=== PATIENT | female | born 1950 | race Caucasian/White ===

== ENCOUNTER 2019-03-24 09:44 | Emergency (ER) | payer MEDICARE, BC ==
[2019-03-24] MEDS: Sodium Chloride 0.9% 10 ML Syringe FLUSH PRN ×3 (10:25→15:40)
[2019-03-24 10:31] VITALS: BP 98/59
--- NOTE | 2019-03-24 10:43 | CR ---
[id number] RAD/RAD Chest PA And Lateral EXAM: RAD Chest PA And Lateral CLINICAL DATA: CHEST PRESSURE COMPARISON: CORRELATION IS MADE WITH THE CAT SCAN OF SEPTEMBER 18, 2015. FINDINGS: Calcified pleural plaque at the left lung base is seen. The lungs otherwise are clear. The cardiomediastinal contour is mildly prominent. IMPRESSION: NO ACUTE PROCESS. Andres Briones MD 03/24/19 1042 Thank you for allowing us to participate in the care of your patient.
--- NOTE | 2019-03-24 10:45 | EDM.PDOC ---
ED HPI GENERAL MEDICAL PROBLEM - General Chief Complaint: General Stated Complaint: CHEST PAIN;SOB Time Seen by Provider: 03/24/19 10:38 Source of Information: Reports: Patient History Limitations: Reports: No Limitations - History of Present Illness INITIAL COMMENTS - FREE TEXT/NARRATIVE: Patient is a 68-year-old female who presents to the emergency department this morning via private vehicle and has a complaint of chest pain. Patient states discomfort began on Friday, has been intermittent but worsens with movement. Chest pain is located left chest and described as pressure and achy. Patient states today because it has not resolved decided to come to emergency department for evaluation. Patient does have a history of hypertension and is currently on medication. Patient denies shortness of breath, fever, trauma, out of country travel, upper respiratory like symptoms, lower extremity edema, headache, blurry vision, or dizziness. Onset: Gradual Onset Date: 03/21/19 Duration: Day(s): Location: Reports: Chest Quality: Reports: Ache, Pressure Severity: Mild Improves with: Reports: None Worsens with: Reports: Movement Associated Symptoms: Reports: Chest Pain. Denies: Fever/Chills, Nausea/Vomiting , Shortness of Breath Middle Sternum Pain Score (Numeric/FACES): 5 - Related Data Allergies Allergy/AdvReac Type Severity Reaction Status Date / Time Sulfa (Sulfonamide Allergy Rash Verified 03/24/19 10:08 Antibiotics) Home Meds: Home Meds ALPRAZolam [Xanax] 0.25 mg PO BID PRN 10/24/15 [History] Cholecalciferol (Vitamin D3) [Vitamin D] 1,000 unit PO DAILY 10/24/15 [History] Desipramine HCl 75 mg PO DAILY 10/24/15 [History] Leflunomide 20 mg PO DAILY 10/24/15 [History] buPROPion HCl [Wellbutrin SR] 150 mg PO DAILY 10/24/15 [History] Losartan [Cozaar] 50 mg PO DAILY 03/24/19 [History] Omeprazole 20 mg PO DAILY 03/24/19 [History] Past Medical History Cardiovascular History: Reports: Hypertension STICK WELDER History: Reports: Fibroids Immunologic History: Reports: Other (See Below) - Past Surgical History HEENT Surgical History: Reports: Naso-Sinus Surgery GI Surgical History: Reports: Appendectomy, Cholecystectomy Female Surgical History: Reports: Hysterectomy Social & Family History - Tobacco Use Smoking Status *Q: Former Smoker Used Tobacco, but Quit: Yes Month/Year Tobacco Last Used: quit 12 yesrs ago Second Hand Smoke Exposure: No - Caffeine Use Caffeine Use: Reports: Coffee, Soda, Tea - Recreational Drug Use Recreational Drug Use: No - Living Situation & Occupation Living situation: Reports: Occupation: Retired ED ROS GENERAL - Review of Systems Review Of Systems: ROS reveals no pertinent complaints other than HPI. Constitutional: Reports: No Symptoms HEENT: Reports: No Symptoms Respiratory: Reports: Pleuritic Chest Pain. Denies: Wheezing, Cough Cardiovascular: Reports: Chest Pain Endocrine: Reports: No Symptoms GI/Abdominal: Reports: No Symptoms : Reports: No Symptoms Musculoskeletal: Reports: No Symptoms Skin: Reports: No Symptoms Neurological: Reports: No Symptoms Psychiatric: Reports: No Symptoms Hematologic/Lymphatic: Reports: No Symptoms Immunologic: Reports: No Symptoms ED EXAM, GENERAL - Physical Exam Exam: See Below Exam Limited By: No Limitations General Appearance: Alert, WD/WN, No Apparent Distress Eye Exam: Bilateral Eye: Normal Inspection Nose: Normal Inspection, Normal Mucosa, No Blood Throat/Mouth: Normal Inspection, Normal Oropharynx, No Airway Compromise Head: Atraumatic, Normocephalic Neck: Normal Inspection, Supple, Non-Tender Respiratory/Chest: No Respiratory Distress, Lungs Clear, Normal Breath Sounds, No Accessory Muscle Use Cardiovascular: No Murmur, Tachycardia GI/Abdominal: Normal Bowel Sounds, Soft, Non-Tender, No Organomegaly, No Distention, No Abnormal Bruit, No Mass Back Exam: Normal Inspection. No: CVA Tenderness (L), CVA Tenderness (R) Extremities: Normal Inspection, No Pedal Edema Neurological: Alert, Oriented, Normal Cognition, No Motor/Sensory Deficits Psychiatric: Normal Affect, Normal Mood Skin Exam: Warm, Dry, Intact, Normal Color, No Rash Lymphatic: No Adenopathy EKG INTERPRETATION EKG Date: 03/24/19 Time: 09:55 Rhythm: Other (Sinus tachycardia) Rate (Beats/Min): 109 [place]: Normal P-Wave: Present QRS: Normal ST-T: Other (Nonspecific T-wave) Comparison: No Change (Other than rate from 2014) Course - Vital Signs Last Recorded V/S: Last Vital Signs Temp 97.0 F 03/24/19 09:58 Pulse 108 H 03/24/19 10:31 Resp 23 H 03/24/19 10:31 BP 98/59 L 03/24/19 10:31 Pulse Ox 96 03/24/19 10:31 - Orders/Labs/Meds Orders: Active Orders 24 hr Category Date Time Status EKG Documentation Completion [RC] ASDIRECTED Care 03/24/19 10:06 Active Sodium Chloride 0.9% [Normal Saline] 100 ml Med 03/24/19 12:45 Active IV ASDIRECTED Sodium Chloride 0.9% [Saline Flush] Med 03/24/19 10:05 Active 10 ml FLUSH Q8HR PRN Saline Lock Insert [OM.PC] Routine Oth 03/24/19 10:05 Ordered Medication Orders Sodium Chloride (Normal Saline) 100 mls @ 200 mls/hr IV ASDIRECTED GREG Last Admin: 03/24/19 13:23 Dose: 200 mls/hr Sodium Chloride (Saline Flush) 10 ml FLUSH Q8HR PRN PRN Reason: keep vein open Last Admin: 03/24/19 10:25 Dose: 10 ml Labs: Laboratory Tests 03/24/19 03/24/19 03/24/19 Range/Units 09:40 09:40 09:40 WBC 20.13 H (5.00-10.00) 10^3/uL RBC 5.05 (3.80-5.50) 10^6/uL Hgb 15.1 (12.0-16.0) g/dL Hct 45.3 (37.0-47.0) % MCV 89.7 (82.0-92.0) fL MCH 29.9 (27.0-31.0) pg MCHC 33.3 (32.0-36.0) g/dL RDW 12.3 (11.5-14.5) % Plt Count 425 H (150-400) 10^3/uL MPV 8.4 (7.4-10.4) fL Immature Gran % (Auto) 0.2 (0.0-5.0) % Neut % (Auto) 82.8 H (50.0-70.0) % Lymph % (Auto) 5.5 L (20.0-40.0) % [place] % (Auto) 11.4 H (2.0-8.0) % Eos % (Auto) 0.0 L (1.0-3.0) % Baso % (Auto) 0.1 (0.0-1.0) % Immature Gran # (Auto) 0.04 (0.00-0.50) 10^3/uL Neut # (Auto) 16.67 H (2.50-7.00) 10^3/uL Lymph # (Auto) 1.10 (1.00-4.00) 10^3/uL [place] # (Auto) 2.29 H (0.10-0.80) 10^3/uL Eos # (Auto) 0.00 L (0.10-0.30) 10^3/uL Baso # (Auto) 0.03 (0.00-0.10) 10^3/uL D-Dimer, Quantitative 658 H (<400) ng/mL Sodium 134 L (136-145) mmol/L Potassium 4.3 (3.3-5.3) mmol/L Chloride 97 L (98-115) mmol/L Carbon Dioxide 26.6 (21.0-32.0) mmol/L Anion Gap 14.7 (5-15) mmol/L BUN 13 (6-25) mg/dL Creatinine 0.63 (0.51-1.17) mg/dL Est Cr Clr Drug Dosing 70.11 mL/min Estimated GFR (MDRD) > 60 mL/min Glucose 136 H (75 - 99) mg/dL Calcium 8.9 (8.7-10.3) mg/dL Total Bilirubin 0.8 (0.2-1.0) mg/dL AST 83 H (15-37) U/L ALT 92 H (12-78) U/L Alkaline Phosphatase 150 H (46-116) IU/L Troponin I 0.04 (0.00-0.070) ng/mL Total Protein 7.6 (6.4-8.2) g/dL Albumin 2.87 L (3.00-4.80) g/dL Specimen Type Urine Color (YELLOW) Urine Appearance (CLEAR) Urine pH (5.0-9.0) Ur Specific [place] (1.005-1.030) Urine Protein (NEGATIVE) mg/dL Urine Glucose (UA) (NEGATIVE) mg/dL Urine Ketones (NEGATIVE) mg/dL Urine Occult Blood (NEGATIVE) Urine Nitrite (NEGATIVE) Urine Bilirubin (NEGATIVE) Urine Urobilinogen (0.2-1.0) E.U./dL Ur Leukocyte Esterase (NEGATIVE) Urine RBC (0-5) /HPF Urine WBC (0-5) /HPF Ur Epithelial Cells /LPF Urine Bacteria (NONE TO FEW) /HPF Urine Mucus (NEGATIVE) /LPF 03/24/19 Range/Units 11:27 WBC (5.00-10.00) 10^3/uL RBC (3.80-5.50) 10^6/uL Hgb (12.0-16.0) g/dL Hct (37.0-47.0) % MCV (82.0-92.0) fL MCH (27.0-31.0) pg MCHC (32.0-36.0) g/dL RDW (11.5-14.5) % Plt Count (150-400) 10^3/uL MPV (7.4-10.4) fL Immature Gran % (Auto) (0.0-5.0) % Neut % (Auto) (50.0-70.0) % Lymph % (Auto) (20.0-40.0) % [place] % (Auto) (2.0-8.0) % Eos % (Auto) (1.0-3.0) % Baso % (Auto) (0.0-1.0) % Immature Gran # (Auto) (0.00-0.50) 10^3/uL Neut # (Auto) (2.50-7.00) 10^3/uL Lymph # (Auto) (1.00-4.00) 10^3/uL [place] # (Auto) (0.10-0.80) 10^3/uL Eos # (Auto) (0.10-0.30) 10^3/uL Baso # (Auto) (0.00-0.10) 10^3/uL D-Dimer, Quantitative (<400) ng/mL Sodium (136-145) mmol/L Potassium (3.3-5.3) mmol/L Chloride (98-115) mmol/L Carbon Dioxide (21.0-32.0) mmol/L Anion Gap (5-15) mmol/L BUN (6-25) mg/dL Creatinine (0.51-1.17) mg/dL Est Cr Clr Drug Dosing mL/min Estimated GFR (MDRD) mL/min Glucose (75 - 99) mg/dL Calcium (8.7-10.3) mg/dL Total Bilirubin (0.2-1.0) mg/dL AST (15-37) U/L ALT (12-78) U/L Alkaline Phosphatase (46-116) IU/L Troponin I (0.00-0.070) ng/mL Total Protein (6.4-8.2) g/dL Albumin (3.00-4.80) g/dL Specimen Type Urincc Urine Color Dark yellow H (YELLOW) Urine Appearance Clear (CLEAR) Urine pH 6.0 (5.0-9.0) Ur Specific [place] >= 1.030 (1.005-1.030) Urine Protein 100 H (NEGATIVE) mg/dL Urine Glucose (UA) 100 H (NEGATIVE) mg/dL Urine Ketones Trace H (NEGATIVE) mg/dL Urine Occult Blood Trace-intact H (NEGATIVE) Urine Nitrite Negative (NEGATIVE) Urine Bilirubin Moderate H (NEGATIVE) Urine Urobilinogen 1.0 (0.2-1.0) E.U./dL Ur Leukocyte Esterase Trace H (NEGATIVE) Urine RBC 0-5 (0-5) /HPF Urine WBC 20-30 H (0-5) /HPF Ur Epithelial Cells Moderate H /LPF Urine Bacteria Moderate H (NONE TO FEW) /HPF Urine Mucus Many H (NEGATIVE) /LPF Meds: Medications Generic Name Dose Route Start Last Admin Trade Name Freq PRN Reason Stop Dose Admin Sodium Chloride 100 mls @ 200 mls/hr 03/24/19 12:45 03/24/19 13:23 Normal Saline IV 200 mls/hr ASDIRECTED GREG Administration Sodium Chloride 10 ml 03/24/19 10:05 03/24/19 10:25 Saline Flush FLUSH 10 ml Q8HR PRN Administration keep vein open Discontinued Medications Generic Name Dose Route Start Last Admin Trade Name Freq PRN Reason Stop Dose Admin Sodium Chloride 1,000 mls @ 999 mls/hr 03/24/19 11:53 03/24/19 12:05 Normal Saline IV 03/24/19 12:53 999 mls/hr .BOLUS ONE Administration Iopamidol 75 ml 03/24/19 12:44 03/24/19 13:23 Isovue-370 (76%) IVPUSH 03/24/19 12:45 75 ml ONETIME ONE Administration - Radiology Interpretation Free Text/Narrative:: Chest x-ray shows no acute cardiopulmonary process. CT chest with IV contrast to rule out PE shows no PE, however, a small to moderate pericardial effusion is seen - Re-Assessments/Exams Free Text/Narrative Re-Assessment/Exam: 03/24/19 14:49 Patient afebrile, vital signs stable, pain controlled. Discussed case with , cardiology at [facility] and Dr. Luis, hospitalist at [facility]. They will accept transfer and patient will be [facility] ambulance to [facility] for continued care. Departure - Departure Time of Disposition: 14:54 Disposition: DC/Tfer to [facility] 02 Condition: Fair Clinical Impression: Acute pericardial effusion, UTI, Urinary tract infectious disease Chest pain Qualifiers: Chest pain type: unspecified Qualified Code(s): R07.9 - Chest pain, unspecified Leukocytosis Qualifiers: Leukocytosis type: unspecified Qualified Code(s): D72.829 - Elevated white blood cell count, unspecified - Discharge Information Referrals: Paige Cid PA-C [Primary Care Provider] - Forms: ED Department Discharge, Interfacility Transfer [facility] - My Orders Last 24 Hours: My Active Orders 03/24/19 10:05 Sodium Chloride 0.9% [Saline Flush] 10 ml FLUSH Q8HR PRN Saline Lock Insert [OM.PC] Routine 03/24/19 10:06 EKG Documentation Completion [RC] ASDIRECTED 03/24/19 12:45 Sodium Chloride 0.9% [Normal Saline] 100 ml IV ASDIRECTED - Assessment/Plan Last 24 Hours: My Active Orders 03/24/19 10:05 Sodium Chloride 0.9% [Saline Flush] 10 ml FLUSH Q8HR PRN Saline Lock Insert [OM.PC] Routine 03/24/19 10:06 EKG Documentation Completion [RC] ASDIRECTED 03/24/19 12:45 Sodium Chloride 0.9% [Normal Saline] 100 ml IV ASDIRECTED Assessment:: Pericardial effusion Plan: Transferred to [facility]
[2019-03-24 10:49] LABS: ANION GAP 14.7 mmol/L (5-15); CHLORIDE,CL 97 mmol/L (98-115); SODIUM,NA 134 mmol/L (136-145)
[2019-03-24] MEDS ORDERED: Sodium Chloride 0.9% 1,000 ML IV ONE (11:53)
[2019-03-24] MEDS ORDERED: Iopamidol 755 Mg/ML 75 ML Bottle IVPUSH ONE (12:44)
[2019-03-24] MEDS ORDERED: Sodium Chloride 0.9% 100 ML IV SCH (12:45)
--- NOTE | 2019-03-24 13:48 | CT ---
[id number] CT/CT Chest W IV EXAM: CT Chest W IV CLINICAL DATA: CHEST PAIN. COMPARISON: September 18, 2015. FINDINGS: LUNGS: Dependent atelectasis at the lung bases. There is a subpleural nodule at the right lung base measuring 0.6 cm (series 3 image 30). This is stable since at least September 18, 2015 suggesting benignity. No new suspicious pulmonary nodules or masses. Left base linear atelectasis and/or scarring. Pleural-based calcifications on the left anteriorly are stable when compared to the prior may be related to prior procedure or infection. Trace left pleural effusion. HEART AND GREAT VESSELS: The heart is stable in size. There is a new small to moderate pericardial effusion. The main pulmonary artery is normal in size with a filling defect to suggest acute coronary artery disease. Atherosclerotic calcifications of the aorta and its branches MEDIASTINUM AND LYMPHATICS: No mediastinal or hilar lymphadenopathy. UPPER ABDOMINAL ORGANS: Unremarkable. BONES: Scattered changes of spondylosis in the spine. No fracture or osseous lesion. IMPRESSION: Small to moderate pericardial effusion is new when compared to the prior study. Oskar Bryant DO 03/24/19 [id number] Thank you for allowing us to participate in the care of your patient.
[2019-03-24] MEDS ORDERED: Ondansetron 4 MG/2 ML SDV IVPUSH ONE (14:53)
[2019-03-24] MEDS ORDERED: HYDROmorphone 1 MG/ML Syringe IVPUSH ONE (14:53)
== END 2019-03-24 15:40 ==
LOC: KA.ED 09:44
DX: I30.9 Acute pericarditis, unspecified (principal); N39.0 Urinary tract infection, site not specified; D72.829 Elevated white blood cell count, unspecified; I10 Essential (primary) hypertension; Z88.2 Allergy status to sulfonamides; Z79.899 Other long term (current) drug therapy; Z87.891 Personal history of nicotine dependence
CPT/HCPCS: 36415; 71046; 71260; 80053; 81001; 84484; 85025; 85379; 93005; 96361; 96374; 96375; 99285; 99285-25; J1170; J2405; J7030; J7050; Q9967

== ENCOUNTER 2019-05-15 14:29 | Emergency (ER) | payer MEDICARE, BC ==
[2019-05-15] MEDS ORDERED: Aspirin 81 MG Tab.Chew PO ONE (15:13)
--- NOTE | 2019-05-15 16:04 | CR ---
[id number] RAD/RAD Chest PA And Lateral EXAM: FRONTAL AND LATERAL CHEST INDICATION: Shortness of breath. COMPARISON: March 24, 2019. DISCUSSION: Cardiomegaly with development of borderline central vascular congestion. Calcified left pleural plaques and scarring in the left lung base have not appreciably changed, but could obscure other underlying pathology. No right-sided infiltrates. IMPRESSION: 1. Cardiomegaly with borderline central vascular congestion. Tiago Tolentino MD 05/15/19 [id number] Thank you for allowing us to participate in the care of your patient.
[2019-05-15] MEDS ORDERED: Sodium Chloride 0.9% 1,000 ML IV ONE (16:05)
[2019-05-15 16:28] LABS: ANION GAP 14.8 mmol/L (5-15); CHLORIDE,CL 99 mmol/L (98-115); SODIUM,NA 136 mmol/L (136-145)
[2019-05-15] MEDS ORDERED: Iopamidol 755 Mg/ML 75 ML Bottle IVPUSH ONE (16:31)
[2019-05-15] MEDS ORDERED: Sodium Chloride 0.9% 50 ML IV SCH (16:45)
--- NOTE | 2019-05-15 17:05 | CT ---
[id number] CT/CT Chest W IV EXAM: CHEST CT WITH CONTRAST INDICATION: History of pericarditis. Chest pain with elevated white blood cell count. COMPARISON: March 24, 2019. DISCUSSION: Persistent small to moderate pericardial effusion. A small to moderate mildly loculated left pleural effusion has mildly increased in size. There are persistent calcified left pleural plaques which could relate to prior hemothorax or infection. Development of a minimal simple appearing right pleural effusion. Partial atelectasis of the left lower lobe with no acute infiltrates identified. A mildly prominent precarinal node is unchanged in size measuring 17 x 10 mm. The right lung is clear. The upper abdomen and osseous structures are unremarkable. IMPRESSION: 1. A small to moderate mildly loculated left pleural effusion has mildly increased. 2. A small to moderate pericardial effusion is stable to mildly increased. Tiago Tolentino MD 05/15/19 [id number] Thank you for allowing us to participate in the care of your patient.
[2019-05-15] MEDS ORDERED: Ketorolac 30 MG/ML SDV IVPUSH ONE (17:44)
--- NOTE | 2019-05-15 18:35 | EDM.PDOC ---
ED HPI GENERAL MEDICAL PROBLEM - General Chief Complaint: Respiratory Problem Stated Complaint: POSSIBLE PNEUMONIA?? Time Seen by Provider: 05/15/19 14:30 Source of Information: Reports: Patient - History of Present Illness INITIAL COMMENTS - FREE TEXT/NARRATIVE: 68-year-old female presents to the emergency room with complaints of increasing pain and discomfort that has been going on since Friday. Initially she states that she had pain in her left shoulder that it waxed and waned and is now moved her her left side of her chest worse with inspiration. She is no shortness of breath and has had night sweats she has a cough that has been nonproductive. She states this feels just like it did last time about a month ago. Patient was in the emergency room on 03/24/2019 with an acute pericardial effusion. She's been taking 5 mg of prednisone since her discharge. She is off her rheumatoid arthritis medication. Her primary care is [facility]. She denies palpitations or dyspnea. She's not had headaches. She denies any nausea or vomiting. She's been afebrile although she states she feels warm. She's not experience any nausea or vomiting. Onset: Gradual Onset Date: 05/12/19 Duration: Hour(s):, Getting Worse Location: Reports: Chest Quality: Reports: Ache Severity: Moderate Improves with: Reports: None Worsens with: Reports: None Associated Symptoms: Reports: Cough, Fever/Chills, Shortness of Breath. Denies : Diaphoresis, Nausea/Vomiting Left Chest Pain Score (Numeric/FACES): 2 - Related Data Allergies Allergy/AdvReac Type Severity Reaction Status Date / Time Sulfa (Sulfonamide Allergy Rash Verified 05/15/19 14:45 Antibiotics) Home Meds: Home Meds ALPRAZolam [Xanax] 0.25 mg PO BID PRN 10/24/15 [History] Cholecalciferol (Vitamin D3) [Vitamin D] 1,000 unit PO DAILY 10/24/15 [History] Desipramine HCl 75 mg PO DAILY 10/24/15 [History] buPROPion HCl [Wellbutrin SR] 150 mg PO DAILY 10/24/15 [History] Losartan [Cozaar] 25 mg PO DAILY 03/24/19 [History] Omeprazole 20 mg PO DAILY 03/24/19 [History] predniSONE [Prednisone] 5 mg PO DAILY 05/15/19 [History] Past Medical History HEENT History: Reports: Cataract, Impaired Vision Cardiovascular History: Reports: Hypertension Gastrointestinal History: Reports: GERD, Irritable Bowel Syndrome Genitourinary History: Reports: None DENTAL PROSTHETIST History: Reports: Fibroids, Musculoskeletal History: Reports: RA Psychiatric History: Reports: Anxiety, Depression, Panic Attack Immunologic History: Reports: Other (See Below) - Past Surgical History HEENT Surgical History: Reports: Cataract Surgery, Naso-Sinus Surgery Cardiovascular Surgical History: Reports: None GI Surgical History: Reports: Appendectomy, Cholecystectomy, Colonoscopy Female Surgical History: Reports: Section, Hysterectomy Musculoskeletal Surgical History: Reports: None Social & Family History - Tobacco Use Smoking Status *Q: Former Smoker Years of Tobacco use: 12 Packs/Tins Daily: 1 Used Tobacco, but Quit: Yes Month/Year Tobacco Last Used: 56 years old - Caffeine Use Caffeine Use: Reports: Coffee, Soda - Recreational Drug Use Recreational Drug Use: No - Living Situation & Occupation Living situation: Reports: Occupation: Retired ED ROS GENERAL - Review of Systems Review Of Systems: See Below Constitutional: Reports: Night Sweats. Denies: Fever, Chills, Diaphoresis HEENT: Reports: Glasses Respiratory: Reports: Shortness of Breath, Cough. Denies: Wheezing, Pleuritic Chest Pain, Sputum, Hemoptysis Cardiovascular: Reports: Chest Pain (pressure), Blood Pressure Problem Endocrine: Reports: No Symptoms GI/Abdominal: Denies: Abdominal Pain, Nausea, Vomiting : Reports: No Symptoms Musculoskeletal: Reports: Shoulder Pain (left shoulder), Joint Pain (h/o RA). Denies: Joint Swelling Skin: Denies: Cyanosis, Pruritis, Rash, Change in Color Neurological: Reports: No Symptoms Psychiatric: Reports: No Symptoms Hematologic/Lymphatic: Reports: No Symptoms Immunologic: Reports: No Symptoms ED EXAM, GENERAL - Physical Exam Exam: See Below Exam Limited By: No Limitations General Appearance: Alert, WD/WN, No Apparent Distress Eye Exam: Bilateral Eye: EOMI, Normal Inspection, PERRL Ears: Hearing Grossly Normal Nose: Normal Inspection Throat/Mouth: Normal Inspection, Normal Oropharynx, Normal Voice, No Airway Compromise Head: Atraumatic, Normocephalic Neck: Normal Inspection, Supple, Non-Tender, Full Range of Motion. No: Carotid Bruit, Thyromegaly Respiratory/Chest: No Respiratory Distress, Lungs Clear, Normal Breath Sounds, No Accessory Muscle Use, Chest Non-Tender Cardiovascular: Normal Peripheral Pulses, No JVD, No Murmur, Tachycardia Peripheral Pulses: 2+: Carotid (L), Carotid (R), Dorsalis Pedis (L), Dorsalis Pedis (R) GI/Abdominal: Normal Bowel Sounds, Soft, Non-Tender, No Organomegaly, No Abnormal Bruit Back Exam: Normal Inspection, Full Range of Motion. No: CVA Tenderness (L), CVA Tenderness (R) Extremities: Normal Inspection, Normal Range of Motion, Non-Tender, No Pedal Edema Neurological: Alert, Oriented, CN II-XII Intact, Normal Cognition, Normal Gait, No Motor/Sensory Deficits Psychiatric: Normal Affect, Normal Mood Skin Exam: Warm, Dry, Intact, Normal Color, No Rash. No: Diaphoretic, Erythema Lymphatic: No Adenopathy EKG INTERPRETATION EKG Date: 05/15/19 Time: 15:15 Rhythm: Other (Sinus tachycardia) Rate (Beats/Min): 101 ST-T: Other (Nonspecific ST and T-wave abnormalities) QT: Normal Comparison: No Change EKG Interpretation Comments: Sinus tachycardia, nonspecific ST and T-wave abnormality, abnormal ECG Course - Vital Signs Last Recorded V/S: Last Vital Signs Temp 98.9 F 05/15/19 19:55 Pulse 97 05/15/19 19:55 Resp 14 05/15/19 19:55 BP 151/97 H 05/15/19 19:55 Pulse Ox 94 L 05/15/19 19:55 - Orders/Labs/Meds Orders: Active Orders 24 hr Category Date Time Status EKG Documentation Completion [RC] ASDIRECTED Care 05/15/19 15:12 Active CULTURE BLOOD [BC] Stat Lab 05/15/19 16:55 Received CULTURE BLOOD [BC] Stat Lab 05/15/19 17:15 Received Blood Culture x2 Reflex Set [OM.PC] Stat Oth 05/15/19 16:47 Ordered EKG 12 Lead [EK] Routine Ther 05/15/19 15:11 Ordered Labs: Laboratory Tests 05/15/19 05/15/19 05/15/19 Range/Units 15:28 15:28 16:55 WBC 19.20 H (5.00-10.00) 10^3/uL RBC 4.48 (3.80-5.50) 10^6/uL Hgb 13.6 D (12.0-16.0) g/dL Hct 40.8 (37.0-47.0) % MCV 91.1 (82.0-92.0) fL MCH 30.4 (27.0-31.0) pg MCHC 33.3 (32.0-36.0) g/dL RDW 13.2 (11.5-14.5) % Plt Count 393 (150-400) 10^3/uL MPV 8.5 (7.4-10.4) fL Immature Gran % (Auto) 0.6 (0.0-5.0) % Neut % (Auto) 84.3 H (50.0-70.0) % Lymph % (Auto) 5.8 L (20.0-40.0) % Coke % (Auto) 8.9 H (2.0-8.0) % Eos % (Auto) 0.2 L (1.0-3.0) % Baso % (Auto) 0.2 (0.0-1.0) % Immature Gran # (Auto) 0.11 (0.00-0.50) 10^3/uL Neut # (Auto) 16.18 H (2.50-7.00) 10^3/uL Lymph # (Auto) 1.12 (1.00-4.00) 10^3/uL Coke # (Auto) 1.71 H (0.10-0.80) 10^3/uL Eos # (Auto) 0.04 L (0.10-0.30) 10^3/uL Baso # (Auto) 0.04 (0.00-0.10) 10^3/uL ESR 50 H (0-20) mm/hr Sodium 136 (136-145) mmol/L Potassium 3.8 (3.3-5.3) mmol/L Chloride 99 (98-115) mmol/L Carbon Dioxide 26.0 (21.0-32.0) mmol/L Anion Gap 14.8 (5-15) mmol/L BUN 11 (6-25) mg/dL Creatinine 0.59 (0.51-1.17) mg/dL Est Cr Clr Drug Dosing 73.18 mL/min Estimated GFR (MDRD) > 60 mL/min Glucose 118 H (75 - 99) mg/dL Lactic Acid 1.4 (0.4-2.0) mmol/L Calcium 8.8 (8.7-10.3) mg/dL Creatine Kinase 29 (26-276) U/L CK-MB (CK-2) < 0.50 (0.00-4.30) ng/mL Troponin I < 0.04 (0.00-0.070) ng/mL C-Reactive Protein 24.3 H (0.0-0.9) mg/dL B-Natriuretic Peptide 46 (0-100) pg/mL Meds: Medications Discontinued Medications Generic Name Dose Route Start Last Admin Trade Name Freq PRN Reason Stop Dose Admin Alprazolam 0.5 mg 05/15/19 19:10 05/15/19 20:01 Xanax PO 05/15/19 19:11 0.5 mg ONETIME ONE Administration Aspirin 324 mg 05/15/19 15:13 05/15/19 15:57 Aspirin PO 05/15/19 15:14 324 mg ONETIME ONE Administration Sodium Chloride 1,000 mls @ 1,000 mls/hr 05/15/19 16:05 05/15/19 16:10 Normal Saline IV 05/15/19 17:04 1,000 mls/hr .BOLUS ONE Administration Sodium Chloride 50 mls @ 200 mls/hr 05/15/19 16:45 05/15/19 16:48 Normal Saline IV 200 mls/hr ASDIRECTED GREG Administration Iopamidol 75 ml 05/15/19 16:31 05/15/19 16:48 Isovue-370 (76%) IVPUSH 05/15/19 16:32 75 ml ONETIME ONE Administration Ketorolac Tromethamine 30 mg 05/15/19 17:44 05/15/19 18:38 Toradol IVPUSH 05/15/19 17:45 30 mg ONETIME ONE Administration - Radiology Interpretation Free Text/Narrative:: CT chest with IV contrast Indication history of pericarditis. Chest pain with elevated white blood cell count Comparison: March 24, 2019 Discussion: Persistent small to moderate pericardial effusion. A small to moderate mildly loculated left pleural effusion has mildly increased in size. There are persistent calcified left pleural plaques which could relate to prior hemothorax or infection. Development of a minimal simple appearing right pleural effusion. Partial atelectasis left lower lobe with no acute infiltrates identified. A mildly prominent pre-cardial node is unchanged in size measuring 17 x 10 mm The right lung is clear The upper abdomen osseous structures are unremarkable Impression: 1. Small to moderate mildly loculated left pleural effusion has mildly increased 2. Small to moderate pericardial effusion is stable to mildly increased. CT Results Date: 05/15/19 - Re-Assessments/Exams Free Text/Narrative Re-Assessment/Exam: 05/15/19 18:42 Patient remains comfortable without complaints. She was given 1 L normal saline , 30 mg IV Toradol given Departure - Departure Time of Disposition: 20:20 Disposition: DC/Tfer to [facility] Condition: Good Clinical Impression: Pleural effusion, left, Pericardial effusion - Discharge Information Referrals: Paige Cid PA-C [Primary Care Provider] - Forms: ED Department Discharge - My Orders Last 24 Hours: My Active Orders 05/15/19 15:11 EKG 12 Lead [EK] Routine 05/15/19 15:12 EKG Documentation Completion [RC] ASDIRECTED 05/15/19 16:47 Blood Culture x2 Reflex Set [OM.PC] Stat 05/15/19 16:55 CULTURE BLOOD [BC] Stat 05/15/19 17:15 CULTURE BLOOD [BC] Stat - Assessment/Plan Last 24 Hours: My Active Orders 05/15/19 15:11 EKG 12 Lead [EK] Routine 05/15/19 15:12 EKG Documentation Completion [RC] ASDIRECTED 05/15/19 16:47 Blood Culture x2 Reflex Set [OM.PC] Stat 05/15/19 16:55 CULTURE BLOOD [BC] Stat 05/15/19 17:15 CULTURE BLOOD [BC] Stat Assessment:: 1. Pericardial effusion mildly increased 2. Moderate left pleural effusion mildly increased Plan: Transfer and acceptance to [facility] has been made. Patient will go by ground ambulance. Patient is stable condition.
[2019-05-15] MEDS ORDERED: ALPRAZolam 0.25 MG Tab PO ONE (19:10)
[2019-05-15 20:26] VITALS: BP 151/97; PULSE 97
== END 2019-05-15 20:20 | disposition critical access hospital (66) ==
LOC: KA.ED 14:29
DX: I31.3 Pericardial effusion (noninflammatory) (principal); J90 Pleural effusion, not elsewhere classified; I10 Essential (primary) hypertension; K21.9 Gastro-esophageal reflux disease without esophagitis; F41.9 Anxiety disorder, unspecified; F32.9 Major depressive disorder, single episode, unspecified; M06.9 Rheumatoid arthritis, unspecified; Z98.49 Cataract extraction status, unspecified eye; Z90.49 Acquired absence of other specified parts of digestive tract; Z90.710 Acquired absence of both cervix and uterus; Z87.891 Personal history of nicotine dependence; R06.02 Shortness of breath
CPT/HCPCS: 36415; 71046; 71260; 80048; 82550; 82553; 83605; 83880; 84484; 85025; 85651; 86140; 87040; 93005; 96361; 96374; 99284; 99285; A9270; J1885; J7030; J7050; Q9967